=== PATIENT | female | born 1995 | race Caucasian/White ===

== ENCOUNTER 2022-03-28 18:00 | Inpatient (IN) | payer BC ==
[2022-03-28] MEDS ORDERED: Ibuprofen 800 MG TAB PO PRN (18:46)
[2022-03-28] MEDS ORDERED: hydrALAZINE 20 MG/ML VIAL SLOW IVP PRN (18:46)
[2022-03-28] MEDS ORDERED: HYDROcodone/Acetaminophen 5/325 mg Tablet PO PRN ×2 (18:46)
[2022-03-28] MEDS ORDERED: Butorphanol Tartrate 1 MG/ML VIAL SLOW IVP PRN (18:46)
[2022-03-28] MEDS ORDERED: Promethazine HCl 25 MG/ML VIAL IM PRN (18:46)
[2022-03-28] MEDS ORDERED: Lidocaine 1% (PF) 30 ML VIAL SC PRN (18:46)
[2022-03-28] MEDS ORDERED: Ondansetron PF 4 MG/2 ML Vial IVP PRN (18:46)
[2022-03-28] MEDS ORDERED: Misoprostol 200 MCG TAB PR PRN (18:46)
[2022-03-28 18:55] VITALS: BMI 24.5
[2022-03-28] MEDS ORDERED: Lactated Ringer's 1,000 ML IV SCH (19:00)
[2022-03-28] MEDS ORDERED: NS w/ Oxytocin 30 units 500 ML IV SCH ×2 (19:00)
[2022-03-28] MEDS ORDERED: Misoprostol 100 MCG TAB VAG SCH (19:00)
[2022-03-28 19:06] LABS: Hemoglobin 11.5 g/dL (12.0-15.5); Mean Corpuscular Hemoglobin 28.8 pg (27.0-33.0); Mean Corpuscular Volume 84.5 fl (81.6-98.3); Mean Platelet Volume 11.3 fl (7.4-10.4); Platelet Count 260 10x3/uL (150-450); RBC Distribution Width 12.3 % (11.5-14.5); White Blood Cell (WBC) Count 11.4 10x3/uL (3.5-10.5)
[2022-03-28 19:37] LABS: HBSAg Index 0.24 S/CO (0-0.99); Hep B Surf Ag Non-Reactive S/CO (NonReactive)
[2022-03-28 19:39] LABS: Syphilis Antibody Nonreactive (Nonreactive); Syphilis Antibody Index 0.04 S/CO (<1.00 Non-Reactive)
[2022-03-28 21:53] LABS: SARS-CoV-2 NAA Rapid Test Not Detected (NotDetected)
[2022-03-29] MEDS ORDERED: Fentanyl 2 mcg/Bup 0.1% Cadd 100 ML ONE (10:07)
[2022-03-29] MEDS ORDERED: Acetaminophen 325 MG TAB PO PRN (11:07)
[2022-03-29] MEDS ORDERED: Promethazine HCl 25 MG/ML VIAL IM PRN (11:07)
[2022-03-29] MEDS ORDERED: diphenhydrAMINE 50 MG/ML VIAL IVP PRN (11:07)
[2022-03-29] MEDS ORDERED: Moisturizing Cream (Eucerin) 113 GM JAR TOP PRN (11:07)
[2022-03-29] MEDS ORDERED: ePHEDrine Sulfate 50 MG/10 ML VIAL SLOW IVP PRN (11:07)
[2022-03-29] MEDS ORDERED: Naloxone HCl 0.4 mg/ml Vial IVP PRN ×2 (11:07)
[2022-03-29] MEDS ORDERED: Lactated Ringer's 500 ML IV PRN (11:07)
[2022-03-29] MEDS ORDERED: Ondansetron PF 4 MG/2 ML Vial IVP PRN (11:07)
[2022-03-29] MEDS ORDERED: Communication Order-Pharmacy FS SCH (11:15)
[2022-03-29] MEDS ORDERED: Fentanyl 2 mcg/Bupivacaine 0.1% Cassette 100 ML EPIDURAL SCH (11:15)
[2022-03-29] MEDS ORDERED: Methylergonovine 0.2 MG/ML VIAL IM PRN (15:00)
[2022-03-29] MEDS ORDERED: NS w/ Oxytocin 30 units 500 ML IV SCH (15:00)
[2022-03-29] MEDS ORDERED: Lanolin Ointment 7 GM TUBE TOP PRN (15:00)
[2022-03-29] MEDS ORDERED: hydrALAZINE 20 MG/ML VIAL SLOW IVP PRN (15:00)
[2022-03-29] MEDS ORDERED: Milk Of Magnesia 30 ML UDCUP PO PRN (15:00)
[2022-03-29] MEDS ORDERED: Bisacodyl 10 MG SUPP PR PRN (15:00)
[2022-03-29] MEDS ORDERED: Boostrix 0.5 ML (Tdap) VIAL (>/=7 yrs of age) IM ONE (15:00)
[2022-03-29] MEDS ORDERED: HYDROcodone/Acetaminophen 5/325 mg Tablet PO PRN ×2 (15:00)
[2022-03-29] MEDS ORDERED: Misoprostol 200 MCG TAB VAG PRN (15:00)
[2022-03-29] MEDS ORDERED: Benzocaine-Menthol 82.5 ML CAN TOP PRN (15:00)
[2022-03-29] MEDS: Ibuprofen 800 MG TAB PO SCH ×2 (16:45→21:47)
[2022-03-29] MEDS: Ferrous Sulfate 325 MG TAB PO SCH (21:25)
[2022-03-29] MEDS: Docusate 100 MG CAP PO SCH (21:47)
[2022-03-30] MEDS: Ibuprofen 800 MG TAB PO SCH ×3 (05:15→22:08)
[2022-03-30] MEDS: Docusate 100 MG CAP PO SCH ×2 (07:52→22:08)
[2022-03-30] MEDS: Ferrous Sulfate 325 MG TAB PO SCH ×2 (07:53→16:06)
[2022-03-30] MEDS ORDERED: Prenatal Vitamin 1 TAB PO SCH (09:00)
[2022-03-31] MEDS: Ibuprofen 800 MG TAB PO SCH ×2 (05:21→14:07)
[2022-03-31 08:35] VITALS: BP 110/59; TEMP 98.1
[2022-03-31] MEDS ORDERED: Milk Of Magnesia 30 ML UDCUP PO SCH (09:00)
[2022-03-31] MEDS ORDERED: Senokot S 8.6-50 MG TAB PO SCH (09:00)
== END 2022-03-31 14:15 | disposition home or self-care (01) | DRG 807 ==
LOC: CSHLD 18:09 → CSHPP 03-29 15:18
PROVIDERS: ADMIT Obstetrics & Gynecology; ATTEND Obstetrics & Gynecology
PROC: 10E0XZZ Delivery of Products of Conception, External Approach (ICD-10-PCS; principal; 2022-03-29)
PROC: 0UQMXZZ Repair Vulva, External Approach (ICD-10-PCS; 2022-03-29)
PROC: 10907ZC Drainage of Amniotic Fluid, Therapeutic from Products of Conception, Via Natural or Artificial Opening (ICD-10-PCS; 2022-03-29)
DX: O36.5930 Maternal care for other known or suspected poor fetal growth, third trimester, not applicable or unspecified (principal); Z37.0 Single live birth; Z20.822 Contact with and (suspected) exposure to COVID-19; Z3A.37 37 weeks gestation of pregnancy; O70.0 First degree perineal laceration during delivery
CPT/HCPCS: 36415; 51702; 85027; 86780; 86850; 86900; 86901; 87340; J0595; J2590; U0002